=== PATIENT | female | born 1995 ===

== ENCOUNTER → 2020-05-31 | Outpatient (CLI) | payer BC ==
[2020-06-01 11:11] LABS: G. vaginalis (DNA Probe) Negative (NEGATIVE); T. vaginalis (DNA Probe) Negative (NEGATIVE)
[2020-06-01 11:12] LABS: Candida species (DNA Probe) Negative (NEGATIVE)
== END | disposition home or self-care (01) ==
LOC: LAB 12:37 → LAB SHORT 12:37
PROVIDERS: Physician Assistant
DX: R10.2 Pelvic and perineal pain (principal); N83.292 Other ovarian cyst, left side; Z97.5 Presence of (intrauterine) contraceptive device
CPT/HCPCS: 76830; 76856; 87480; 87510; 87660

== ENCOUNTER → 2021-04-18 | Outpatient (CLI) | payer BC | END | disposition home or self-care (01) | LOC: LAB SHORT 19:26 | PROVIDERS: Obstetrics & Gynecology | DX: Z01.419 Encounter for gynecological examination (general) (routine) without abnormal findings (principal) | CPT/HCPCS: G0123 ==